=== PATIENT | female | born 1985 | race Caucasian/White ===

== ENCOUNTER 2021-12-18 13:39 | Outpatient (CLI) | payer OTHER, SELFPAY | END 2021-12-18 13:40 | disposition home or self-care (01) | LOC: NFLDREF 13:39 | PROVIDERS: PCP Family Medicine; Visit Provider Obstetrics & Gynecology | DX: Z01.419 Encounter for gynecological examination (general) (routine) without abnormal findings (principal); B07.9 Viral wart, unspecified; L60.0 Ingrowing nail; L98.9 Disorder of the skin and subcutaneous tissue, unspecified; Z12.4 Encounter for screening for malignant neoplasm of cervix | CPT/HCPCS: 87624; 88175 ==

== ENCOUNTER 2022-11-21 12:06 | Outpatient (CLI) | payer OTHER, SELFPAY | END 2022-11-21 12:07 | disposition home or self-care (01) | PROVIDERS: PCP Family Medicine; Visit Provider Obstetrics & Gynecology | DX: N93.9 Abnormal uterine and vaginal bleeding, unspecified (principal); Z86.2 Personal history of diseases of the blood and blood-forming organs and certain disorders involving the immune mechanism | CPT/HCPCS: 82306; 82607; 84403; 84443 ==

== ENCOUNTER 2022-11-25 10:56 | Outpatient (CLI) | payer OTHER, SELFPAY ==
--- NOTE | 2022-11-25 11:00 | CRLHL7_ITS ---
For Patients: As a result of the Century Cures Act, medical imaging exams and procedure reports are released immediately into your electronic medical record. You may view this report before your referring provider. If you have questions, please contact your health care provider. INDICATION: Abnormal uterine and vaginal bleeding. Bilateral pelvic pain left greater than right. TECHNIQUE: Transabdominal and transvaginal pelvic ultrasound. FINDINGS: The uterus measures 7.8 x 3.4 x 4.5 cm. Normal endometrial stripe of 3 mm. No myometrial mass. No free pelvic fluid. The right ovary measures 4.5 x 2.7 x 2.4 cm. The left ovary measures 3.7 x 1.9 x 2.4 cm. Blood flow is identified within the ovaries. IMPRESSION: Normal transabdominal and transvaginal pelvic ultrasound. Dictated by Oscar Duncan MD @ 11/25/2022 11:53:07 AM (Electronically Signed)
== END 2022-11-25 10:57 | disposition home or self-care (01) ==
LOC: US 10:57
PROVIDERS: PCP Family Medicine; Visit Provider Obstetrics & Gynecology
DX: N93.9 Abnormal uterine and vaginal bleeding, unspecified (principal); R10.2 Pelvic and perineal pain
CPT/HCPCS: 76830; 76856; 93976

== ENCOUNTER 2023-06-17 16:00 | Outpatient (RCR) | payer OTHER, SELFPAY ==
--- NOTE | 2023-06-03 13:13 | PT.OPDNX ---
PT [facility] Daily Note PT [facility] Daily Note Start: 01/13/23 08:37 Freq: Status: Active Protocol: Document 06/03/23 10:16 ARR (Rec: 06/03/23 13:13 ARR [email or web address]) E-signed By Ayla Novoa DPT PT [facility] Daily Progress Note Visit Information Note Type Daily Note Visit Number 10 Cancellation Note Cancelled Documentation Eval: 01/13/23. POC 1 / 10 Extension 06/03 POC 1 x 6 Insurance Information Insurance Name [employer] Medical Diagnosis N81.6 rectocele Treating Diagnosis R10.30 Lower abdominal pain, unspecified R39.16 Straining to void R27.8 Lack of coordination ( muscle incoordination) Subjective Subjective -Back got irritable could only stand or lay down. Couldn't sit. Went away with chiro adjustment. -With thrusting can be sore into this area regardless of position. Home Exercise Home Exercise Comments OTHER: -Bladder handout on 01/13 -Education: breathing in positions below no HEP given - Awareness of bladder habits and NOT straining to void Access Code: [email or web address] URL: [email or web address]/ Date: 01/28/2023 Prepared by: Ayla Novoa Exercises - Sidelying Thoracic and Shoulder Rotation - 1 x daily - 4-7 x weekly - 6-8 reps - Sidelying Diaphragmatic Breathing - 1 x daily - 4-7 x weekly - 6-8 reps - Diaphragmatic Breathing in Supported Child's Pose with Pelvic Floor Relaxation - 1 x daily - 4-7 x weekly - 6-8 reps - Half Kneeling Hip Flexor Stretch - 1 x daily - 4-7 x weekly - 2-3 reps - 20-30 sec hold - [place] Pose - 1 x daily - 4 -7 x weekly - 2-3 reps - 20-30 sec hold Access Code: [email or web address] URL: [email or web address]/ Date: 04/15/2023 Prepared by: Ayla Novoa Exercises - Sidelying Open Book Thoracic Rotation with Knee on Foam Roll - 1 x daily - 5-7 x weekly - 8-10 reps - Sidelying Diaphragmatic Breathing - 1 x daily - 5-7 x weekly - 6-8 reps - Supine Hip Internal and External Rotation - 1 x daily - 5-7 x weekly - 6-8 reps - Quadruped Rocking Backward - 1 x daily - 5-7 x weekly - 3 sets - 6-8 reps - Segmental Cat Cow - 1 x daily - 5-7 x weekly - 6-8 reps - Supine Hip Adduction Isometric with Ball - 1 x daily - 3-4 x weekly - 2 sets - 8-10 reps - Quadruped Diaphragmatic Breathing - 1 x daily - 3-4 x weekly - 2 sets - 8-10 reps - Bridge - 1 x daily - 3-4 x weekly - 2 sets - 8-10 reps - Side Plank on Knees - 1 x daily - 3-5 x weekly - 2 sets - 8-10 reps - Tall Kneeling Hip Hinge - 1 x daily - 3-4 x weekly - 1-2 sets - 8-12 reps - Bridge - 1 x daily - 3-4 x weekly - 1-2 sets - 8-12 reps - Seated Hip Adduction Isometrics with Ball - 1 x daily - 3-4 x weekly - 1-2 sets - 8-12 reps Objective Other/Pertinent Objective 04/16: R rotation with R ASIS AND MM higher ON R. R IC higher 1 thumbwidth. EXTERNAL OBJECTIVE 01/22: -Movement screen: MS flexion reduced LS mobility. MS ext reduced TS and GHJ mobility. MS rotation 25% limitation bilat -SLS: able to hold 30 sec ea side with knee extension -Posture: elevated IC 1.5 thumbwidths on R, Bilat foot pronation. Supine: MM and ASIS lower on R -Hip PROM: IR 50 bilat, ER 70 R / 80 L. Hip extension -Strength: Other Tests: -Coordination: upper ab gripping TA activation bearing down into lower belly -Breathing: dec?d posterior and lateral ribcage mvmt with inhalation -Other: narrow ribcage angle 60* -DR: negative Tests: -Flexibility: + HS bilat, + pifiromis R, + HF R -Strength: glut medius 3 bilat INTERNAL EXAMINATION INTRAVAGINAL:01/13 -Sensation: intact to touch -Observation: WNL -Perineum: normal =-Lifting contraction: visible lift -Bulge: nil -Prolapse: not assessed, will complete next session Tenderness/pain to palpation/ tone: -Layer 3: puborectalis / pubococcygeus / iliococcygeus / coccygeus with TTP and increased tone on RIGHT side. LEFT side reduced tone and contractility -Pelvic wall: obturator internus / piriformis on RIGHT Strength ( R / C / L): -Power (MMT): 2 -Endurance: 5 -Reps:2 -Fast twitch: not assessed Reduced contractility LEFT side of PF Other: -Breathing examination: dec?d posterior and lateral ribcage mvmt with inhalation Functional Test Performed & Score PFQ: bladder 45, bowel 34, prolapse 15, sexual Patient Instructed in Risks/Benefits Yes Therapeutic Exercise Therapeutic Exercise Minutes (minutes) 8 Therapeutic Exercise: To Restore -Discussion of progress thus Functional Status far and continued skilled therapy need and areas of target Neuromuscular Re-Ed Neuromuscular Reeducation Minutes ( 45 minutes) Neuromuscular Reeducation Comments NMR: Indicated to facilitate improved muscle firing and postural awareness through the use of tactile cues. -TA alt august 07 x 8 reps -Bridge x 8 reps. Ball squeze bridge x 10 reps -Modified side plank x 10 reps w/towel roll squeeze then ball squeze -90/90 hip shifting -90/90 hip shift with moving leg -Hip hinge at wall for 3 x 8 reps. Focus on big toe down, neutral spine, hip shifting into back of hips Treatment Minutes Timed Code Treatment Minutes 53 Total Treatment Time 53 Billing Units Neuromuscular Reeducation Units 3 Therapeutic Exercise Units 1 Assessment/Impression Assessment/Impression Improved glut activation compared to prior sessions with bridge exercise - able to progress to standing hip hinge without pain flare. Cues throughout for form, breathing, and motor recruitment. Pt to continue working on hip hinge and bridge at home for glut activation. Pt had been seen for lower abdominal pain, rectocele for 10 visits from 01/13/2023 to 06/03/2023 during this episode of physical therapy. Focus of therapy on spinal ROM, hip stretching, PF lengthening. Also on proximal strengthening of core, gluts, and PF while lengthening through posterior hip to minimize glut gripping/ pain flare. Interventions including ther exercise, manual therapy, neuromuscular reeducation, self-care. Pt at this time has not met all short/jail goals and is not independent with HEP. Skilled PT is indicated to continue at a frequency of 1x/ wk for an additional x 6 visits. Goals below are unchanged but timelines are adjusted to accomodate for additional visits. Skilled PT to continue targeting proximal strengthening of core, gluts and pelvic floor. Plan of Care Physical Therapy Goals STG (within 5 weeks) 1)Pt will initiate HEP without increased pain/symptoms 2)Pt will report at least 30% improvement in pain/symptoms since start of therapy for improved quality of life 3) Pt will report ability to fully empty bladder without straining to reduce downward pressures on pelvic floor LTG (within 6 weeks, total of 16 wks) 1)Pt will be indep in HEP for lobsterman mgmt. of pain/ symptoms 2)Pt will report at least 80% improvement in pain/symptoms since start of therapy for improved quality of life 3)Pt will report Marinoff scale not exceeding 1 4) Pt will demonstrate PFQ score <20 Daily Plan of Care Continue per POC Daily Plan of Care Comments -Review HEP for strength - focus on glut strengthening - review opening exercises for hip including pullbacks. Glut strengthenign. Review Core exercises from last sessions and progress -Gait mechanics for glut firing as indicated Recertification Information Initial Certification Date 01/13/23 Reasons to Continue Skilled Therapy See above Continued Plan of Care and Interventions See above Provider Signature Shows Agreement With POC & Medical Necessity Physician Comment/Change Comment or Changes Physician NPI Number #
== END 2023-10-07 10:05 | disposition home or self-care (01) ==
PROVIDERS: PCP Family Medicine; Visit Provider Obstetrics & Gynecology
DX: N81.6 Rectocele (principal); Z51.89 Encounter for other specified aftercare
CPT/HCPCS: 97110; 97112; 97140; 97161; 97535